=== PATIENT | male | born 1950 | race Caucasian/White ===

== ENCOUNTER → 2016-07-21 | Outpatient (CLI) | payer BC, MEDICARE ==
[~2016-07-21] MED LIST: ALDACTONE25 MG PO; ASPIRIN81 M2 PO; ASPIRIN81 MG PO; ATORVASTATIN CA40 MG PO; AZOR 5-20 MG T1 EACH PO; BACTRIM 400-801 TA1 PO; BUMEX1 MG PO; BUMEX2 MG PO; BYSTOLIC10 MG PO; CYCLOPHOSPHAMID50 M1 PO; CYMBALTA PO; CYMBALTA30 MG PO; DESYREL100 MG PO; DULOXETINE HCL60 MG PO; IBUPROFEN IB200 M1 PO; K-DUR20 ME1 PO; KCL PO; LASIX PO; LEVOTHYROXINE50 MCG PO; LIPITOR40 MG PO; LOSARTAN POTASS50 MG PO; OMEPRAZOLE40 M1 PO; PEPCID AC20 M2 PO; SYNTHROID0.05 MG PO; TENORMIN50 MG PO; WELCHOL625 MG PO; WELLBUTRIN100 M1 PO; WELLBUTRIN100 MG PO; ZESTRIL40 MG PO
[2016-07-21 10:59] LABS: BASOPHIL% 0.5 % (0-2.5); EOSINOPHIL# 0.3 X10e3 (0-0.7); EOSINOPHIL% 3.1 % (0.0-7.0); HEMATOCRIT 39.4 % (38.0-50.0); HEMOGLOBIN 13.1 gm/dL (13.0-16.0); LYMPHOCYTE# 1.7 X10e3 (1.0-3.5); LYMPHOCYTE% 19.1 % (17.0-45.0); MEAN CELL VOLUME 94.1 FL (83-96); MEAN CORPUSCULAR HEMOGLOBIN 31.3 PG (28-34); MEAN CORPUSCULAR HGB CONC 33.3 g/dL (30-36); MEAN PLATELET VOLUME 9.1 FL (6.5-11.5); MONOCYTE# 0.8 X10e3 (0-1.0); MONOCYTE% 9.2 % (3.0-12.0); NEUTROPHIL% 68.1 % (40-75); PLATELET COUNT 159 X10e3 (140-420); RED BLOOD COUNT 4.19 X10e (3.90-5.60); URINE APPEARANCE CLEAR; URINE BILIRUBIN NEG (NEG); URINE BLOOD NEG (NEG); URINE COLOR YELLOW; URINE GLUCOSE NEG (NEG); URINE KETONE NEG (NEG); URINE LEUKOCYTE ESTERASE NEG (NEG); URINE NITRATE NEG (NEG); URINE PH 6.5 (5-8); URINE PROTEIN NEG (NEG); URINE SPECIFIC GRAVITY 1.006 (1.003-1.035); URINE UROBILINOGEN 0.2 MG/DL (NEG); WHITE BLOOD COUNT 8.9 X10e3 (4.0-10.5)
[2016-07-21 11:02] LABS: DIFF IND NO
[2016-07-21 11:19] LABS: URINE SOURCE CLEAN CATCH
[2016-07-21 11:32] LABS: ALBUMIN SERUM 4.3 g/dL (3.5-5.0); BILIRUBIN,TOTAL 1.1 mg/dL (0.2-2.0); BUN/CREATININE RATIO 15.26; CALCIUM SERUM 9.6 mg/dL (8.4-10.2); CREATININE SERUM 1.9 mg/dL (0.6-1.4); GLOM FILT RATE Estimated 35.7 mL/min (>60); POTASSIUM 4.2 mmol/L (3.5-5.1); PROTEIN TOTAL SERUM 7.6 g/dL (6.0-8.3)
[2016-07-21 12:44] LABS: CREATININE,RANDOM URINE 21 mg/dL; TOTAL PROTEIN,RANDOM URINE <10 mg/dl (<10)
[2016-07-24 07:43] LABS: CALCIUM (PTHINTACT) 10.1 mg/dL (8.6-10.3)
== END | disposition home or self-care (01) ==
LOC: CLAB 09:54
PROVIDERS: Internal Medicine Nephrology
DX: I12.9 Hypertensive chronic kidney disease with stage 1 through stage 4 chronic kidney disease, or unspecified chronic kidney disease (principal); N18.3 Chronic kidney disease, stage 3 (moderate)
CPT/HCPCS: 36415; 80053; 81003; 82310; 82570; 83970; 84100; 84156; 85025